=== PATIENT | female | born 1960 | race Asian ===

== ENCOUNTER → 2016-06-25 | Outpatient (CLI) | payer OTHER ==
[~2016-06-25] MED LIST: COLACE100 MG PO; NORCO1 TA2 PO
== END | disposition home or self-care (01) ==
LOC: MA 06-22 15:00
PROC: BH02ZZZ Plain Radiography of Bilateral Breasts (ICD-10-PCS; principal; 2016-06-25)
DX: Z12.31 Encounter for screening mammogram for malignant neoplasm of breast (principal)
CPT/HCPCS: G0202

== ENCOUNTER → 2017-07-20 | Outpatient (CLI) | payer OTHER | END | disposition home or self-care (01) | LOC: MA 15:58 | PROC: BH02ZZZ Plain Radiography of Bilateral Breasts (ICD-10-PCS; principal; 2017-07-20) | DX: Z12.31 Encounter for screening mammogram for malignant neoplasm of breast (principal) | CPT/HCPCS: 77067 ==

== ENCOUNTER 2018-07-27 06:52 | Day surgery (SDC) | payer OTHER ==
[~2018-07-27] VITALS: Ht 157.5 cm; Wt 54.4 kg
[2018-07-27 07:28] VITALS: BP 116/75
[2018-07-27 09:34] VITALS: BP 114/66
== END 2018-07-27 10:15 | disposition home or self-care (01) ==
LOC: DS 06:52 → GI 07:30 → DS 10:15
DX: K63.89 Other specified diseases of intestine (principal); K92.1 Melena; R10.9 Unspecified abdominal pain; R11.0 Nausea; Z86.010 Personal history of colon polyps; Z98.51 Tubal ligation status; Z98.890 Other specified postprocedural states
CPT/HCPCS: 43235; 45378; 99153; G0500; J1200; J1610; J2250; J2310; J3010; J3490

== ENCOUNTER → 2020-04-15 | Outpatient (CLI) | payer OTHER | END | disposition home or self-care (01) | LOC: MA 15:00 | PROC: BH02ZZZ Plain Radiography of Bilateral Breasts (ICD-10-PCS; principal; 2020-04-15) | DX: Z12.31 Encounter for screening mammogram for malignant neoplasm of breast (principal) | CPT/HCPCS: 77067 ==